=== PATIENT | male | born 1970 | race Caucasian/White ===

== ENCOUNTER 2016-04-20 18:22 | Emergency (ER) | payer OTHER ==
[~2016-04-20] VITALS: Ht 172.7 cm; Wt 78.0 kg
[2016-04-20 18:21] VITALS: TEMP 36.8; Ht 172.7 cm; Wt 78.0 kg
[~2016-04-20 18:22] MED LIST: HYDR-5688 PO; NRV5 PO
[2016-04-20] MEDS ORDERED: ONDANSETRON INJ 2 MG/ML 2 ML VIAL IV. STA (18:48)
[2016-04-20] MEDS ORDERED: MoRPHine SULFATE 10 MG/ML CARP/VIAL IV STA (18:48)
[2016-04-20] MEDS ORDERED: OPTIRAY 320 IV PRN (19:00)
[2016-04-20 19:24] LABS: BASO % 0.4 %; BASO ABS # 0.02 K/uL (0-0.2); COMPLETE YES; EOS % 3.5 %; HEMATOCRIT 38.3 % (42-52); IG% 0.2 %; LYMPH % 32.9 %; MEAN CELL VOLUME 84.4 fL (80-100); MEAN CORPUSCULAR HEMOGLOBIN 31.1 pg (25-34); MEAN CORPUSCULAR HGB CONC 36.8 g/dl (32-36); MEAN PLATELET VOLUME 9.3 fL (7.4-10.4); MONO % 10.1 %; NEUT % 52.9 %; PLATELET COUNT 249 K/uL (130-400); RED BLOOD COUNT 4.54 M/uL (4.7-6.1); WHITE BLOOD COUNT 4.86 K/uL (4.8-10.8)
[2016-04-20 19:30] LABS: ISTAT CREATININE 1.1 mg/dl (0.6-1.3); ISTAT HEMOGLOBIN 12.9 g/dl (14.0-18.0); ISTAT IONIZED CALCIUM 1.15 mmol/l (1.12-1.32)
[2016-04-20 19:36] LABS: INR 1.1 (0.9-1.1); PARTIAL THROMBOPLASTIN RATIO 1.1; PROTHROMBIN TIME (PATIENT) 11.5 SECONDS (9.0-12.0)
[2016-04-20 19:44] LABS: BUN/CREATININE RATIO 17.8 (10-20); CALCIUM 9.2 mg/dl (8.5-10.1); CREATININE 1.1 mg/dl (0.60-1.40)
[2016-04-20 19:47] LABS: ALB/GLOB RATIO 1.3 (0.9-2)
--- NOTE | 2016-04-20 20:27 | DIAGNOSTIC IMAGING REPORT ---
CT OF THE CHEST WITH IV CONTRAST CLINICAL HISTORY: Chest pain status post trauma 50 pound weight fell on patient COMPARISON STUDY: No previous studies for comparison. TECHNIQUE: Following the IV administration of 119 mL of Optiray-320, CT of the thorax was performed from the thoracic inlet to the lung bases. Images are reviewed in the axial, sagittal, and coronal planes. IV contrast was administered without complication. CT DOSE: 1477.04 mGy.cm FINDINGS: Thyroid: Imaged portions of the thyroid gland are normal in appearance. Thoracic aorta: The thoracic aorta is normal in course and caliber, noting standard 3-vessel arch anatomy. No aneurysm or dissection is seen. Pulmonary vasculature: The pulmonary trunk is normal in caliber. There are no central filling defects identified to suggest pulmonary embolus. Note that this examination was not protocoled for the evaluation of pulmonary emboli. HEART: The heart is normal in size and configuration, without pericardial effusion. Lungs and pleural spaces: No pleural effusions are visualized. There is no pneumothorax. There is no focal pulmonary consolidation. There are no findings to indicate pulmonary contusion. Mediastinum: There is no mediastinal lymphadenopathy. Nedra: Clear. Axilla: Clear. Upper abdomen: There is minor left adrenal gland thickening Skeletal structures: There are no lytic or blastic osseous lesions. IMPRESSION: No evidence of acute intrathoracic injury. Electronically signed by: Derrick Pickett M.D. 04/20/2016 8:25 PM Dictated Date/Time: 04/20/2016 8:22 PM
--- NOTE | 2016-04-20 20:29 | DIAGNOSTIC IMAGING REPORT ---
CT OF THE CERVICAL SPINE CLINICAL HISTORY: Neck pain status post trauma COMPARISON STUDY: No previous studies for comparison. CT DOSE: TECHNIQUE: CT scan of the cervical spine was performed from the skull base to the thoracic inlet. Images are reviewed in the axial, sagittal, and coronal planes. IV contrast was not administered for this examination. FINDINGS: The visualized portions of the lung apices reveal no evidence of pneumothorax. The prevertebral soft tissues are normal. No fractures or subluxations are visualized. There are mild degenerative changes. There are several ossicles adjacent to the odontoid. IMPRESSION: No evidence of acute fracture or traumatic subluxation. Electronically signed by: Derrick Pickett M.D. 04/20/2016 8:27 PM Dictated Date/Time: 04/20/2016 8:26 PM
--- NOTE | 2016-04-20 20:31 | DIAGNOSTIC IMAGING REPORT ---
CT THORACIC SPINE WITHOUT CT DOSE: CLINICAL HISTORY: Thoracic spine pain status post trauma. TECHNIQUE: Helical images were acquired in transverse plane. Coronal and sagittal reformatted images were acquired. COMPARISON STUDY: None. FINDINGS: There is no evidence of pneumothorax. There is no evidence of focal pulmonary contusion. There is no evidence of a paraspinal hematoma. No pleural effusions are visualized. There are multilevel degenerative changes present. No fractures are visualized. There are no subluxations. IMPRESSION: No fractures or subluxations identified. Electronically signed by: Derrick Pickett M.D. 04/20/2016 8:29 PM Dictated Date/Time: 04/20/2016 8:27 PM
--- NOTE | 2016-04-20 20:37 | DIAGNOSTIC IMAGING REPORT ---
CT ABD/PELVIS IV AND ORAL CONT CLINICAL HISTORY: Abdominal pain status post trauma. 50 pound weight fell on patient. COMPARISON STUDY: 04/15/2013 TECHNIQUE: Following the IV administration of 119 mL of Optiray-320, CT scan of the abdomen and pelvis was performed from the lung bases to the proximal femurs. Images are reviewed in the axial, sagittal, and coronal planes. IV contrast was administered without complication. CT DOSE: FINDINGS: Lower chest: The heart is normal in size and configuration, without pericardial effusion. The lung bases and pleural spaces are clear. Liver: The contrast-enhanced liver is normal in size, contour, and attenuation. There is no intrahepatic biliary ductal dilatation. The hepatic veins and portal veins are patent. Gallbladder: Unremarkable. Spleen: Mildly enlarged (12.8 cm) Pancreas: There is an equivocal pancreatic divisum. No pancreatic masses are visualized. Adrenal glands: There is mild left adrenal gland thickening. Kidneys: There is symmetric renal cortical enhancement. The kidneys are normal in size without hydronephrosis. Bowel: There are no transition zones indicate bowel obstruction. There is no pathologic bowel wall thickening. No acute inflammatory changes are visualized. Peritoneum: There is no intraperitoneal free air or abdominal ascites. Vasculature: The abdominal aorta is normal in course and caliber. Adenopathy: None. Pelvic viscera: The bladder, and pelvic viscera are unremarkable. Skeletal structures: There is a 1 cm sclerotic lesion within the right iliac bone consistent with a bone island. There is also a right femoral head bone island. No fractures are visualized. IMPRESSION: 1. No evidence of acute intra-abdominal or pelvic injury 2. Mild splenomegaly 3. Equivocal pancreatic divisum Electronically signed by: Derrick Pickett M.D. 04/20/2016 8:35 PM Dictated Date/Time: 04/20/2016 8:30 PM
--- NOTE | 2016-04-20 20:41 | DIAGNOSTIC IMAGING REPORT ---
CT LUMBAR SPINE WITHOUT CT DOSE: CLINICAL HISTORY: Fell, 50lb struck pelvis. Spine pain TECHNIQUE: Helical images were acquired in transverse plane. Reformatted sagittal and coronal images were reviewed. CONTRAST: No contrast was administered COMPARISON STUDY: None. FINDINGS: L1-2 level: There is no evidence of significant disc bulge or focal herniation. There is no evidence of spinal or foraminal stenosis. L2-3 level: There is no evidence of significant disc bulge or focal herniation. There is no evidence of spinal or foraminal stenosis. L3-4 level: There is no evidence of significant disc bulge or focal herniation. There is no evidence of spinal or foraminal stenosis. L4-5 level: There is no evidence of significant disc bulge or focal herniation. There is no evidence of spinal or foraminal stenosis. L5-S1 level: There is moderate disc osteophyte complex. There is no significant spinal stenosis. There is mild bilateral foraminal narrowing. There is a bone island within the right medial iliac bone. There are degenerative changes in the SI joints. No fractures or traumatic subluxations are visualized. IMPRESSION: 1. No acute fractures or traumatic subluxations identified 2. Disc osteophyte complex at the L5-S1 level. Electronically signed by: Derrick Pickett M.D. 04/20/2016 8:40 PM Dictated Date/Time: 04/20/2016 8:37 PM
[2016-04-20] MEDS ORDERED: MoRPHine SULFATE 4 MG/ML 1 ML CARP\\VIAL IV STA (20:47)
--- NOTE | 2016-04-20 21:11 | DIAGNOSTIC IMAGING REPORT ---
LEFT SHOULDER MIN 2 VIEWS ROUTINE CLINICAL HISTORY: Left shoulder pain status post trauma COMPARISON: None. DISCUSSION: No fractures or dislocations are visualized. IMPRESSION: No fractures or dislocations identified. Electronically signed by: Derrick Pickett M.D. 04/20/2016 9:10 PM Dictated Date/Time: 04/20/2016 9:09 PM
--- NOTE | 2016-04-20 21:12 | DIAGNOSTIC IMAGING REPORT ---
RIGHT SHOULDER MIN 2 VIEWS ROUTINE CLINICAL HISTORY: Right shoulder pain status post trauma COMPARISON: None. DISCUSSION: No fractures or dislocations are visualized. There is a small bone island within the humeral head. IMPRESSION: No fractures or dislocations identified. Electronically signed by: Derrick Pickett M.D. 04/20/2016 9:10 PM Dictated Date/Time: 04/20/2016 9:10 PM
[2016-04-20] MEDS ORDERED: OXYCODONE IR HOME PACK PO STA (22:16)
[2016-04-20] MEDS ORDERED: POTASSIUM CHLORIDE 20 MEQ TABCR PO STA (22:17)
--- NOTE | 2016-04-20 22:17 | EMERGENCY ROOM VISIT NOTE ---
History First contact with patient: 18:37 Chief Complaint: FALL Stated Complaint: FALL/ BACK PAIN History of Present Illness The patient is a 46 year old male who presents to the Emergency Room via ambulance with complaints of "fall/back pain". The patient states that last night around 7 PM he was carrying a 50 pound bag of salt in his he was descending the steps he fell backwards and landed on a landing. He said the bag then struck him in the anterior pelvis. He states he has numbness and tingling with pain shooting down both of his legs. He feels he is experiencing leg weakness but is able to ambulate. He points to both shoulders noted there is pain in these regions. He has taken lots of Tylenol today without any relief. He states he has taken 20 Tylenol tablets today of which were at least 250 mg. He states that he can't eat and also has abdominal pain with pain in the low-back rated as an 8-9/10. The patient denies any head pain, neck pain, numbness or tingling in the genital region, bowel or bladder incontinence, pain shooting down his arms, loss of consciousness, numbness or tingling in his arms. Review of Systems A complete 10-point Review of Systems was discussed with the patient, with pertinent positives and negatives listed in the History of Present Illness. All remaining Review of Systems questions can be considered negative unless otherwise specified. Past Medical/Surgical History Medical Problems: (1) Benign hypertension (2) Dental caries (3) Inguinal hernia, right Family History Diabetes mellitus Heart disease Kidney disease Social History Smoking Status: Never Smoker Alcohol Use: occasionally Drug Use: none Marital Status: single, Housing Status: lives alone Occupation Status: disabled Current/Historical Medications Scheduled Lisinopril/Hctz (Zestoretic 20MG/12.5MG), 1 TAB PO DAILY Scheduled PRN Acetaminophen (Tylenol), 1,300 MG PO DIRECTED PRN for Pain Oxycodone Ir (Roxicodone Ir), 1-2 TAB PO Q4H PRN for Pain Allergies Coded Allergies: Cyclobenzaprine (Verified Adverse Reaction, Unknown, ANXIETY AND AGITATION , 03/13/16) Physical Exam Vital Signs Date Time Temp Pulse Resp B/P Pulse Ox O2 Delivery O2 Flow Rate FiO2 04/20/16 22:35 75 18 128/96 99 04/20/16 21:20 69 18 145/103 99 Room Air 04/20/16 20:48 Room Air 04/20/16 19:28 76 18 166/108 98 Room Air 04/20/16 18:21 36.8 82 18 157/114 98 Room Air Physical Exam VITAL SIGNS - Vital signs and nursing notes were reviewed. Patient is afebrile , he is hypertensive at 157/114, he is non-tachycardic and is saturating well on room air 98%. GENERAL -46-year-old male appearing his stated age who is in no acute distress. The patient is nontoxic in appearance but does appear to be in pain. Communicates well with provider and answers questions appropriately. SKIN - Gross examination of the entire body surface demonstrates no lacerations or abrasions. There is no ecchymosis noted. HEAD - Normocephalic, Atraumatic. No Carter's Sign or Raccoon's Eyes. EYES - PERRL with EOMI bilaterally. Without subconjunctival hemorrhage. Palpebral conjunctiva pink and moist with no injection. EARS - No deformities of external structures noted on gross examination bilaterally. No hemotympanum present. No tympanic perforation noted. Handle of malleus, umbo, cone of light, pars tensa/flaccid all easily visualized. NOSE - Midline and without cyanosis. No epistaxis or clear watery discharge noted. Septum midline without deviation. No septal hematoma noted. No overlying ecchymosis noted. MOUTH/OROPHARYNX - Without perioral cyanosis. Tongue midline with equal elevation of palate bilaterally. No blood noted in the oropharynx. No tonsillar hypertrophy, erythema, or exudates noted. No dental fractures noted. NECK - Cervical collar in place. There is tenderness to palpation over the cervical, thoracic and lumbar spinous processes. Minimal cervical paraspinal muscle tenderness noted. LUNGS - Chest wall symmetric without accessory muscle use, intercostals retractions, or central cyanosis. No flail chest or depressed fractures noted. No paradoxical chest wall movements noted. No tenderness to palpation across the anterior and posterior chest sebastian. Normal vesicular breath sounds CTA B/ L. No wheezes, rales, or rhonchi appreciated. CARDIAC - RRR with S1/S2. No murmur, rubs, or gallops appreciated. ABDOMEN - Abdominal contour and without pulsations or visible masses. BS normoactive all four quadrants. No rebound tenderness or guarding noted. Negative Pavan's or Cullen Pierre's Signs. No tenderness, palpable masses, hepatosplenomegaly, or ascites noted. EXTREMITIES - No gross deformities noted of the extremities. There is tenderness to palpation over the bilateral shoulders. Patient is vascularly intact in the extremities. FROM with no tremors, fasciculations, or clonus noted on PROM throughout. +5/5 strength noted in UE/LE bilaterally. NEUROLOGIC - Cranial nerves II through XII grossly intact. Sensory intact to light touch throughout. Lower extremity reflexes intact. Patient able to axial load and ambulate without assistance. PSYCH - A&Ox3 and cooperates fully with examiner. Pt is very pleasant and interacts well with examiner. Medical Decision & Procedures ER Provider Diagnostic Interpretation: CT ABD/PELVIS IV AND ORAL CONT CLINICAL HISTORY: Abdominal pain status post trauma. 50 pound weight fell on patient. COMPARISON STUDY: 04/15/2013 TECHNIQUE: Following the IV administration of 119 mL of Optiray-320, CT scan of the abdomen and pelvis was performed from the lung bases to the proximal femurs. Images are reviewed in the axial, sagittal, and coronal planes. IV contrast was administered without complication. CT DOSE: FINDINGS: Lower chest: The heart is normal in size and configuration, without pericardial effusion. The lung bases and pleural spaces are clear. Liver: The contrast-enhanced liver is normal in size, contour, and attenuation. There is no intrahepatic biliary ductal dilatation. The hepatic veins and portal veins are patent. Gallbladder: Unremarkable. Spleen: Mildly enlarged (12.8 cm) Pancreas: There is an equivocal pancreatic divisum. No pancreatic masses are visualized. Adrenal glands: There is mild left adrenal gland thickening. Kidneys: There is symmetric renal cortical enhancement. The kidneys are normal in size without hydronephrosis. Bowel: There are no transition zones indicate bowel obstruction. There is no pathologic bowel wall thickening. No acute inflammatory changes are visualized. Peritoneum: There is no intraperitoneal free air or abdominal ascites. Vasculature: The abdominal aorta is normal in course and caliber. Adenopathy: None. Pelvic viscera: The bladder, and pelvic viscera are unremarkable. Skeletal structures: There is a 1 cm sclerotic lesion within the right iliac bone consistent with a bone island. There is also a right femoral head bone island. No fractures are visualized. IMPRESSION: 1. No evidence of acute intra-abdominal or pelvic injury 2. Mild splenomegaly 3. Equivocal pancreatic divisum Electronically signed by: Derrick Pickett M.D. 04/20/2016 8:35 PM Dictated Date/Time: 04/20/2016 8:[address] OF THE CERVICAL SPINE CLINICAL HISTORY: Neck pain status post trauma COMPARISON STUDY: No previous studies for comparison. CT DOSE: TECHNIQUE: CT scan of the cervical spine was performed from the skull base to the thoracic inlet. Images are reviewed in the axial, sagittal, and coronal planes. IV contrast was not administered for this examination. FINDINGS: The visualized portions of the lung apices reveal no evidence of pneumothorax. The prevertebral soft tissues are normal. No fractures or subluxations are visualized. There are mild degenerative changes. There are several ossicles adjacent to the odontoid. IMPRESSION: No evidence of acute fracture or traumatic subluxation. Electronically signed by: Derrick Pickett M.D. 04/20/2016 8:27 PM Dictated Date/Time: 04/20/2016 8:[address] OF THE CHEST WITH IV CONTRAST CLINICAL HISTORY: Chest pain status post trauma 50 pound weight fell on patient COMPARISON STUDY: No previous studies for comparison. TECHNIQUE: Following the IV administration of 119 mL of Optiray-320, CT of the thorax was performed from the thoracic inlet to the lung bases. Images are reviewed in the axial, sagittal, and coronal planes. IV contrast was administered without complication. CT DOSE: 1477.04 mGy.cm FINDINGS: Thyroid: Imaged portions of the thyroid gland are normal in appearance. Thoracic aorta: The thoracic aorta is normal in course and caliber, noting standard 3-vessel arch anatomy. No aneurysm or dissection is seen. Pulmonary vasculature: The pulmonary trunk is normal in caliber. There are no central filling defects identified to suggest pulmonary embolus. Note that this examination was not protocoled for the evaluation of pulmonary emboli. HEART: The heart is normal in size and configuration, without pericardial effusion. Lungs and pleural spaces: No pleural effusions are visualized. There is no pneumothorax. There is no focal pulmonary consolidation. There are no findings to indicate pulmonary contusion. Mediastinum: There is no mediastinal lymphadenopathy. Nedra: Clear. Axilla: Clear. Upper abdomen: There is minor left adrenal gland thickening Skeletal structures: There are no lytic or blastic osseous lesions. IMPRESSION: No evidence of acute intrathoracic injury. Electronically signed by: Derrick Pickett M.D. 04/20/2016 8:25 PM Dictated Date/Time: 04/20/2016 8:[address] LUMBAR SPINE WITHOUT CT DOSE: CLINICAL HISTORY: Fell, 50lb struck pelvis. Spine pain TECHNIQUE: Helical images were acquired in transverse plane. Reformatted sagittal and coronal images were reviewed. CONTRAST: No contrast was administered COMPARISON STUDY: None. FINDINGS: L1-2 level: There is no evidence of significant disc bulge or focal herniation. There is no evidence of spinal or foraminal stenosis. L2-3 level: There is no evidence of significant disc bulge or focal herniation. There is no evidence of spinal or foraminal stenosis. L3-4 level: There is no evidence of significant disc bulge or focal herniation. There is no evidence of spinal or foraminal stenosis. L4-5 level: There is no evidence of significant disc bulge or focal herniation. There is no evidence of spinal or foraminal stenosis. L5-S1 level: There is moderate disc osteophyte complex. There is no significant spinal stenosis. There is mild bilateral foraminal narrowing. There is a bone island within the right medial iliac bone. There are degenerative changes in the SI joints. No fractures or traumatic subluxations are visualized. IMPRESSION: 1. No acute fractures or traumatic subluxations identified 2. Disc osteophyte complex at the L5-S1 level. Electronically signed by: Derrick Pickett M.D. 04/20/2016 8:40 PM Dictated Date/Time: 04/20/2016 8:37 PM RIGHT SHOULDER MIN 2 VIEWS ROUTINE CLINICAL HISTORY: Right shoulder pain status post trauma COMPARISON: None. DISCUSSION: No fractures or dislocations are visualized. There is a small bone island within the humeral head. IMPRESSION: No fractures or dislocations identified. Electronically signed by: Derrick Pickett M.D. 04/20/2016 9:10 PM Dictated Date/Time: 04/20/2016 9:10 PM LEFT SHOULDER MIN 2 VIEWS ROUTINE CLINICAL HISTORY: Left shoulder pain status post trauma COMPARISON: None. DISCUSSION: No fractures or dislocations are visualized. IMPRESSION: No fractures or dislocations identified. Electronically signed by: Derrick Pickett M.D. 04/20/2016 9:10 PM Dictated Date/Time: 04/20/2016 9:[address] THORACIC SPINE WITHOUT CT DOSE: CLINICAL HISTORY: Thoracic spine pain status post trauma. TECHNIQUE: Helical images were acquired in transverse plane. Coronal and sagittal reformatted images were acquired. COMPARISON STUDY: None. FINDINGS: There is no evidence of pneumothorax. There is no evidence of focal pulmonary contusion. There is no evidence of a paraspinal hematoma. No pleural effusions are visualized. There are multilevel degenerative changes present. No fractures are visualized. There are no subluxations. IMPRESSION: No fractures or subluxations identified. Electronically signed by: Derrick Pickett M.D. 04/20/2016 8:29 PM Dictated Date/Time: 04/20/2016 8:27 PM Laboratory Results 04/20/16 19:14 Red Blood Count 4.54, Mean Corpuscular Volume 84.4, Mean Corpuscular Hemoglobin 31.1, Mean Corpuscular Hemoglobin Concent 36.8, Mean Platelet Volume 9.3, Neutrophils (%) (Auto) 52.9, Lymphocytes (%) (Auto) 32.9, Monocytes (%) (Auto) 10.1, Eosinophils (%) (Auto) 3.5, Basophils (%) (Auto) 0.4, Neutrophils # (Auto ) 2.57, Lymphocytes # (Auto) 1.60, Monocytes # (Auto) 0.49, Eosinophils # (Auto ) 0.17, Basophils # (Auto) 0.02 04/20/16 19:14 Test 04/20/16 19:12 04/20/16 19:14 Bedside Hemoglobin 12.9 g/dl (14.0-18.0) Bedside Hematocrit 38 % (42-52) Bedside Sodium 142 mEq/L (135-144) Bedside Potassium 2.9 mEq/L (3.3-5.0) Bedside Chloride 102 mEq/L (101-112) Bedside Total CO2 26 mEq/l (24-31) Bedside Blood Urea Nitrogen 20 mg/dl (7-18) Bedside Creatinine 1.1 mg/dl (0.6-1.3) Bedside Glucose (other) 97 mg/dl (70-99) Bedside Ionized Calcium (Rigo) 1.15 mmol/l (1.12-1.32) White Blood Count 4.86 K/uL (4.8-10.8) Red Blood Count 4.54 M/uL (4.7-6.1) Hemoglobin 14.1 g/dL (14.0-18.0) Hematocrit 38.3 % (42-52) Mean Corpuscular Volume 84.4 fL (80-100) Mean Corpuscular Hemoglobin 31.1 pg (25-34) Mean Corpuscular Hemoglobin Concent 36.8 g/dl (32-36) Platelet Count 249 K/uL (130-400) Mean Platelet Volume 9.3 fL (7.4-10.4) Neutrophils (%) (Auto) 52.9 % Lymphocytes (%) (Auto) 32.9 % Monocytes (%) (Auto) 10.1 % Eosinophils (%) (Auto) 3.5 % Basophils (%) (Auto) 0.4 % Neutrophils # (Auto) 2.57 K/uL (1.4-6.5) Lymphocytes # (Auto) 1.60 K/uL (1.2-3.4) Monocytes # (Auto) 0.49 K/uL (0.11-0.59) Eosinophils # (Auto) 0.17 K/uL (0-0.5) Basophils # (Auto) 0.02 K/uL (0-0.2) RDW Standard Deviation 37.9 fL (36.4-46.3) RDW Coefficient of Variation 12.4 % (11.5-14.5) Immature Granulocyte % (Auto) 0.2 % Immature Granulocyte # (Auto) 0.01 K/uL (0.00-0.02) Prothrombin Time 11.5 SECONDS (9.0-12.0) Prothromb Time International Ratio 1.1 (0.9-1.1) Activated Partial Thromboplast Time 29.6 SECONDS (21.0-31.0) Partial Thromboplastin Ratio 1.1 Anion Gap 11.0 mmol/L (3-11) Est Creatinine Clear Calc Drug Dose 82.0 ml/min Estimated GFR () 93.5 Estimated GFR (Non- 80.6 BUN/Creatinine Ratio 17.8 (10-20) Calcium Level 9.2 mg/dl (8.5-10.1) Total Bilirubin 0.5 mg/dl (0.2-1) Aspartate Amino Transf (AST/SGOT) 17 U/L (15-37) Alanine Aminotransferase (ALT/SGPT) 15 U/L (12-78) Alkaline Phosphatase 111 U/L (45-117) Total Protein 7.5 gm/dl (6.4-8.2) Albumin 4.2 gm/dl (3.4-5.0) Globulin 3.3 gm/dl (2.5-4.0) Albumin/Globulin Ratio 1.3 (0.9-2) Acetaminophen Level < 2 ug/ml (10-30) Medications Administered Medications (Trade) Dose Ordered Sig/Zachariah Route Start Time Stop Time Status Last Admin Dose Admin Morphine Sulfate (MoRPHine SULFATE INJ) 10 mg NOW STAT IV 04/20/16 18:48 04/20/16 18:55 DC 04/20/16 19:27 10 MG Ondansetron HCl (Zofran Inj) 4 mg NOW STAT IV. 04/20/16 18:48 04/20/16 18:56 DC 04/20/16 19:27 4 MG Morphine Sulfate (MoRPHine SULFATE INJ) 4 mg NOW STAT IV 04/20/16 20:47 04/20/16 20:48 DC 04/20/16 21:15 4 MG Oxycodone HCl (Roxicodone Immediate Rel 5MG Home Pack) 1 homepack UD STAT PO 04/20/16 22:16 04/20/16 22:17 DC 04/20/16 22:31 1 HOMEPACK Potassium Chloride (Klor-Con Tab) 40 meq NOW STAT PO 04/20/16 22:17 04/20/16 22:18 DC 04/20/16 22:31 40 MEQ Medical Decision Patient was seen and evaluated as above. After obtaining a thorough history and physical examination, IV access was obtained and a CBC, CMP, apply cervical collar, shoulder radiographs bilaterally, CT of the C-spine, chest, thoracic region, lumbar region, abdomen and pelvis with IV and oral contrast secondary to subjective and objective examination findings. And acetaminophen levels also drawn as well as coagulation studies. An i-STAT was also ordered secondary to the patient's subjective acuity so that way stat CT scan be obtained. Patient was given 10 mg of morphine IV secondary to his objective and subjective level of pain. He was also given 4 mg of Zofran IV. The i-STAT revealed a low potassium of 2.9 therefore an EKG was obtained and revealed a sinus rhythm with fusion complexes at a ventricular rate of 75 bpm with no ectopy or ischemic change. These fusion complexes were not present in February 2015 however there appears to be very little change from previous and as the patient was not experiencing any chest pain or shortness of breath I do not feel there is any acute pathology behind this. This was to rule out any hypokalemic changes which I do not see. The results of the radiographs and CT scans are as above. These were discussed in detail with the patient to include the incidental findings. He is to follow-up with his family doctor regarding these findings. He then underwent an ambulatory trial in my presence as well as my attending. My attending also personally evaluated the patient. The patient stated he did not have a ride home and did not have money for a taxi therefore wanted to walk on. I then discussed the case with our case investigator and it was decided to provide him with a voucher but he was instructed that this is not a regular occurrence and that he would have to have a ride home in the future if he was to return. He verbalizes understanding. I did elect to give him a home pack of OxyIR 5 mg tablets as well as a prescription for home for his pain. He was then instructed to call his family doctor for follow-up regarding today's visit. He was informed upon a low potassium finding and was provided with 40 mEq of potassium here. He was educated upon worrisome symptoms in which to return. He had questions answered prior to discharge and was discharged home in good condition. He is to follow-up with his family doctor regarding today's visit and CT scan findings. CBC reveals a slight anemia, no coagulation deficit, no evidence of renal failure or liver failure. There appears to be no problems with the liver although the patient did consume a lot of Tylenol today but the Tylenol level is low. In evaluation treatment this patient the following differential diagnoses were entertained: Trauma, hypokalemia, among others. [place] Drug Monitoring Program Search Results: patient reviewed within database, no issues identified Impression Primary Impression: Fall Additional Impressions: Hypokalemia Contusion of multiple sites Departure Information Dispostion Home / Self-Care Condition GOOD Prescriptions Oxycodone Ir (Roxicodone Ir) 5 Mg Tab 1-2 TAB PO Q4H Y for Pain, #15 TAB For Initial Treatment Prov: Florentino Ceja PA-C 04/20/16 Referrals Vargas Fleming M.D. (PCP) Patient Instructions [facility] Additional Instructions You have been treated in the Emergency Department for Back Pain following a fall. You have received pain medicine in the emergency department which impairs your ability to operate a vehicle. It is illegal for you to drive after receiving these medicines. You have been prescribed Oxy IR to be used for pain control. This is a narcotic medication. You cannot drive or consume alcohol while on this medicine. This medicine should only be used for pain that cannot be controlled with over-the- counter pain medicines. Follow-up please consider using a stool softener with this. For pain control, you can use the following [id number] medicines (if >12 yo): - Regular strength (325mg/tab) Tylenol (acetaminophen) 2 tabs every 4-6 hours as needed. Do not exceed 12 tablets in a 24 hour period. Avoid taking more than 4 grams (4000 mg) of Tylenol per day. This includes any other sources of acetaminophen you may take on a regular basis. - Regular strength (200 mg/tab) Advil (ibuprofen) 1-2 tabs every 4-6 hours as needed. Do not exceed a dose of 3200 mg per day. If this is an acute injury, ice can be applied to the area of pain for the first 3 days to help decrease pain and inflammation. After the first 3 days, a heating pad can be used over the area for continued soothing relief. You should schedule a follow-up appointment in 2-3 days with your Primary Care Provider for further evaluation and treatment of your back pain. Please discuss the NON emergent findings of the CT scan with your family doctor as we discussed. They should be able to access these records. Return to the Emergency Department if your current symptoms worsen despite treatment course outlined above, or if you develop any of the following symptoms : intractable pain despite aforementioned treatment course, loss of control of your bowel or bladder, numbness or tingling in your groin, or development of a fever. Please return to the emergency Department recently new/concerning symptoms. Problem Qualifiers
[2016-04-20] MEDS ORDERED: OXYC1TAB3 PO (22:19)
[2016-04-20] MEDS ORDERED: POTASSIUM CHLORIDE 10 MEQ TABCR ONE (22:22)
[2016-04-20 22:35] VITALS: BP 128/96; PULSE 75; O2SAT 99
--- NOTE | 2016-04-21 00:53 | EMERGENCY ROOM VISIT NOTE ---
ED Visit Note First contact with patient: 18:37 I have personally evaluated this patient examined him and reviewed the pertinent labs and data. I have discussed the case with Florentino Ceja, the physician metallurgical laboratory assistant and agree with the plan. Please refer to the PA note She comes in after falling when carrying a heavy having. He has diffuse pain we did hand CAT scans and they're unremarkable. he complains that he has pain going down his legs and some sensation of tingling. He has normal motor on my exam and has brisk 2+ Achilles and patellar reflexes. He is able ambulate with some pain in his back. There is no evidence of any lumbar fracture. Clinically , he has nothing to suggest cauda equina syndrome. At this point, he will need follow-up with his regular doctor and pain management. He is encouraged to return if: increasing pain, numbness weakness, change in bowel or bladder function, any new problems or concerns. He was happy with plan and discharged to home.
[2016-06-24] MEDS ORDERED: ACET-1311 PO (19:25)
[2016-07-18] MEDS ORDERED: LISI-787 PO (19:24)
== END 2016-04-20 22:37 | disposition home or self-care (01) ==
LOC: EDBD 18:22 → C.EDD 18:23
DX: S20.229A Contusion of unspecified back wall of thorax, initial encounter (principal); W10.8XXA Fall (on) (from) other stairs and steps, initial encounter; E87.6 Hypokalemia; I10 Essential (primary) hypertension; Z79.899 Other long term (current) drug therapy; Z88.8 Allergy status to other drugs, medicaments and biological substances; Z88.3 Allergy status to other anti-infective agents; Z82.49 Family history of ischemic heart disease and other diseases of the circulatory system; Z84.1 Family history of disorders of kidney and ureter

== ENCOUNTER 2016-06-12 21:36 | Emergency (ER) | payer OTHER ==
[~2016-06-12] VITALS: Ht 174 cm; Wt 79.5 kg
[~2016-06-12 21:36] MED LIST changes: -HYDR-5688 PO; -NRV5 PO; +OXYC1TAB3 PO
[2016-06-12 21:38] VITALS: TEMP 36.7; Ht 174 cm; Wt 79.5 kg
[2016-06-12] MEDS ORDERED: OXYCODONE HCL IR 5 MG TAB (IMMEDIATE RELEASE) PO STA (22:01)
--- NOTE | 2016-06-12 22:09 | EMERGENCY ROOM VISIT NOTE ---
ED Visit Note First contact with patient: 21:40 CHIEF COMPLAINT: Toothache HISTORY OF PRESENT ILLNESS: This 46-year-old male presents the ER with chief complaint of tooth pain which has been ongoing for months. He is having pain in his right lower jaw which she rates at a 7 out of 10. The patient denies any facial pain or swelling. The patient denies any fever or chills. The patient states that he was supposed to have his teeth removed on May 11 but his blood pressure was too high. He is now seeing Dr. Elfor his hypertension. He is taking lisinopril and hydrochlorothiazide for his blood pressure. He states that once his blood pressure is under control oral surgeon has agreed to remove his teeth. REVIEW OF SYSTEMS: 6 system review was performed and was negative unless stated otherwise in history of present illness. PMH: The patient is healthy; hypertension, inguinal hernia repair SOCIAL HISTORY: Patient lives alone. The patient admits to chewing tobacco but denies any alcohol use. PHYSICAL EXAM: Vital Signs: Blood pressure 176/115, pulse 77, respiratory rate 18, temperature 36.7 Reviewed Nurse's notes. GENERAL: 46-year-old white male appears older than stated age. Poor hygiene is noted. MENTAL Status: Alert and oriented 3. MOUTH: All teeth that are remaining are with diffuse decay. Gingiva with erythema and edema throughout. No palpable abscess. The patient has chewed tobacco in his mouth at this time. FACE: There is no facial swelling , NECK: No cervical or submandibular lymphadenopathy. EMERGENCY COURSE: The patient was evaluated. The patient was given OxyIR 5 mg by mouth for pain. He was given an OxyIR home pack to take as directed. The patient was discharged home in stable condition. DIAGNOSIS: Dental decay and dentalgia DISCHARGE INSTRUCTIONS & TREATMENT: Ibuprofen 600 mg every 6 hours with food for pain. Take OxyIR as directed for more severe pain. Do not drive while taking the OxyIR. Take amoxicillin as prescribed. Follow-up with your oral surgeon as soon as possible for removal of all your teeth. Stop chewing tobacco. Problem List Medical Problems: (1) Benign hypertension Status: Chronic (2) Dental caries Status: Chronic (3) Inguinal hernia, right Status: Chronic Current/Historical Medications Scheduled Lisinopril/Hctz (Zestoretic 20MG/12.5MG), 1 TAB PO DAILY Scheduled PRN Acetaminophen (Tylenol), 1,300 MG PO DIRECTED PRN for Pain Allergies Coded Allergies: Cyclobenzaprine (Verified Adverse Reaction, Unknown, ANXIETY AND AGITATION , 06/12/16) Vital Signs Date Time Temp Pulse Resp B/P Pulse Ox O2 Delivery O2 Flow Rate FiO2 06/12/16 21:38 36.7 77 18 176/115 100 Room Air Departure Information Referrals Vargas Fleming M.D. (PCP) Patient Instructions [facility]
[2016-06-12] MEDS ORDERED: OXYC1TAB3 PO (22:10)
[2016-06-12] MEDS ORDERED: AMOX500C3 PO (22:10)
[2016-06-12] MEDS ORDERED: OXYCODONE IR HOME PACK PO ONE (22:15)
[2016-06-12 22:16] VITALS: BP 180/90; PULSE 75; O2SAT 100
[2016-06-24] MEDS ORDERED: ACET-1311 PO (19:25)
[2016-07-18] MEDS ORDERED: LISI-787 PO (19:24)
== END 2016-06-12 22:18 | disposition home or self-care (01) ==
LOC: C.EDB 21:37 → C.EDD 22:18
DX: K02.9 Dental caries, unspecified (principal); I10 Essential (primary) hypertension; Z79.899 Other long term (current) drug therapy

== ENCOUNTER 2016-06-24 19:55 | Emergency (ER) | payer OTHER ==
[~2016-06-24] VITALS: Ht 172.7 cm; Wt 76.6 kg
[~2016-06-24 19:55] MED LIST changes: +ACET-1311 PO
[2016-06-24 20:00] VITALS: PULSE 85; TEMP 37.1; Ht 172.7 cm; Wt 76.6 kg
[2016-06-24] MEDS ORDERED: OXYC1TAB3 PO (20:37)
--- NOTE | 2016-06-24 20:37 | EMERGENCY ROOM VISIT NOTE ---
ED Visit Note First contact with patient: 20:06 CHIEF COMPLAINT: Exacerbation of chronic dental pain HISTORY OF PRESENT ILLNESS: This 46-year-old male returns to the emergency department complaining of dental pain. He states that he has had problems for the last 3 months. He notes primarily right-sided pain. It is presently a 7/ 10. He has exhausted wcul-rtm-dowpjtz measures. He denies drainage or discharge. The patient denies any facial pain or swelling. The patient denies any fever or chills. The patient states that he was supposed to have his teeth removed in early May, but his pressure was too elevated for sedation. Dr. Fleming is managing his hypertension. He has appointment with him in 3 days. He states that his blood pressure has always been poorly controlled but it is now an issue because of the need for the oral surgery. REVIEW OF SYSTEMS: 6 system review was performed and was negative unless stated otherwise in history of present illness. PMH: Electronic medical records are reviewed and summarized as above/below. See Problem List. SOCIAL HISTORY: Patient lives alone. The patient admits to chewing tobacco but denies any alcohol use. PHYSICAL EXAM: Vital Signs: Blood pressure 172/124, pulse 85, respiratory rate 18, temperature 37.1 Reviewed Nurse's notes. GENERAL: 46-year-old white male appears older than stated age. MOUTH: Overall, the patient has extremely poor dentition. Teeth are grossly decayed, fractured and eroded to the gumline.Gingiva with erythema and edema throughout. No palpable abscess. FACE: There is no facial swelling, NECK: No cervical or submandibular lymphadenopathy. EMERGENCY COURSE: The patient was seen and evaluated as above. He was given an OxyIR home pack to take as directed. The patient was discharged home in stable condition. He was just treated with a course of antibiotics recently. It was not felt that additional antibiotics were needed at this time as the patient is experiencing pain and does not appear to have any evidence for focal abscess. He reports that he has antibiotics at home from prior prescriptions that he has not completed. He does not have any evidence for facial cellulitis or Rito's angina. Patient was reviewed in the [facility] Prescription Drug Monitoring Program, he has a 6 narcotic prescriptions since February from both Emergency Department and oral surgery providers. Problem List Medical Problems: (1) Benign hypertension Status: Chronic (2) Dental caries Status: Chronic (3) Inguinal hernia, right Status: Chronic Current/Historical Medications Scheduled Lisinopril/Hctz (Zestoretic 20MG/12.5MG), 2 TAB PO DAILY Scheduled PRN Acetaminophen (Tylenol), 1,300 MG PO PRN PRN for Pain Oxycodone Immediate Rel Tab (Roxicodone Ir), 1-2 TAB PO Q4H PRN for Pain Allergies Coded Allergies: Cyclobenzaprine (Verified Adverse Reaction, Unknown, ANXIETY AND AGITATION , 06/12/16) Vital Signs Date Time Temp Pulse Resp B/P Pulse Ox O2 Delivery O2 Flow Rate FiO2 06/24/16 20:56 20 168/88 99 06/24/16 20:00 37.1 85 20 172/124 98 Room Air Medications Administered Medications (Trade) Dose Ordered Sig/Zachariah Route Start Time Stop Time Status Last Admin Dose Admin Oxycodone HCl (Roxicodone Immediate Rel 5MG Home Pack) 1 homepack UD ONCE PO 06/24/16 20:45 06/24/16 20:46 DC 06/24/16 20:52 1 HOMEPACK Departure Information Impression Primary Impression: Chronic dental pain Prescriptions Oxycodone Immediate Rel Tab (ROXICODONE IR) 5 Mg Tab 1-2 TAB PO Q4H Y for Pain, #30 TAB For Initial Treatment Prov: Keyana Ramírez PA 06/24/16 Referrals Vargas Fleming M.D. (PCP) Patient Instructions [facility] Additional Instructions Oxycodone (OxyIR) 5mg: Take 1-2 pills every four hours for breakthrough pain. Avoid alcohol, operating machinery or dangerous equipment, working on ladders or roofs, DRIVING, or situations where being under the influence may be dangerous. It is recommended to use an nnxs-nbs-otagyyp stool softener such as Colace, 100mg twice daily while taking this medication to avoid constipation. Ibuprofen(Motrin, Advil) may be used for fever or pain. Use 600mg every six hours as needed. Take with food. Avoid using more than 2400mg in a 24 hour period. Do not use 2400mg per day for more than three consecutive days without physician direction. Prolonged inappropriate use can lead to stomach upset or ulcers. (AND/OR) Acetaminophen(Tylenol) may be used for fever or pain. Use 1000mg every six hours as needed. Avoid using more than 4000mg in a 24 hour period. Saltwater gargles after meals and before bedtime. Soft foods. Orajel/Anbesol/clove oil as needed for discomfort. Followup with your dentist for definitive management. You may also follow up with your primary care physician for pain/care management until you can be seen by your dentist.
[2016-06-24] MEDS ORDERED: OXYCODONE IR HOME PACK PO ONE (20:45)
[2016-06-24 20:56] VITALS: BP 168/88; O2SAT 99
[2016-07-18] MEDS ORDERED: LISI-787 PO (19:24)
== END 2016-06-24 20:58 | disposition home or self-care (01) ==
LOC: C.EDB 19:56 → C.EDD 20:58
DX: K08.89 Other specified disorders of teeth and supporting structures (principal); G89.29 Other chronic pain; I10 Essential (primary) hypertension; F17.220 Nicotine dependence, chewing tobacco, uncomplicated

== ENCOUNTER 2016-06-28 00:25 | Emergency (ER) | payer OTHER ==
[~2016-06-28] VITALS: Ht 175.3 cm; Wt 80.8 kg
[2016-06-28 00:36] VITALS: TEMP 36.9; Ht 175.3 cm; Wt 80.8 kg
[2016-06-28] MEDS ORDERED: KETOROLAC TROMETHAMINE 60 MG/2 ML VIAL IM STA (01:06)
[2016-06-28] MEDS ORDERED: OXYC1TAB3 PO (01:08)
--- NOTE | 2016-06-28 01:08 | EMERGENCY ROOM VISIT NOTE ---
History Report prepared by Fidelia: Juan Blue Under the Supervision of: Dr. Quincy Burt M.D. First contact with patient: 01:01 Chief Complaint: BACK INJURY Stated Complaint: HURT BACK History of Present Illness The patient is a 46 year old male who presents to the Emergency Room with complaints of a lower back injury that occurred 12 hours ago. The patient rates his constant "nagging" pain moderate in severity. He was lifting an entertainment center today and accidently twisted his back. He denies any trauma. His pain is radiating down his right leg. He denies any problems moving his bowels or urine. He also denies any abdominal pain and numbness. He has a history of arthritis in his back. Source of History: patient Onset: 12 hours ago Position: back (lower) Symptom Intensity: moderate Quality: other (nagging) Timing: constant Associated Symptoms: No melena, No numbness, No urinary symptoms Note: He has right leg pain. Review of Systems See HPI for pertinent positives & negatives. A total of 10 systems reviewed and were otherwise negative. Past Medical & Surgical Medical Problems: (1) Benign hypertension (2) Dental caries (3) Inguinal hernia, right Old medical records were reviewed. Nurse's notes were reviewed and I agree with. Back problems. Denies diabetes Family History Diabetes mellitus Heart disease Kidney disease Social History Smoking Status: Never Smoker Alcohol Use: occasionally Drug Use: none Marital Status: single, Housing Status: lives alone Occupation Status: unemployed, disabled Current/Historical Medications Scheduled Lisinopril/Hctz (Zestoretic 20MG/12.5MG), 2 TAB PO DAILY Scheduled PRN Oxycodone Immediate Rel Tab (Roxicodone Ir), 1-2 TAB PO Q4H PRN for Pain Oxycodone Immediate Rel Tab (Roxicodone Ir), 1-2 TAB PO Q4H PRN for Severe Pain Allergies Coded Allergies: Cyclobenzaprine (Verified Adverse Reaction, Unknown, ANXIETY AND AGITATION , 06/28/16) Physical Exam Vital Signs Date Time Temp Pulse Resp B/P Pulse Ox O2 Delivery O2 Flow Rate FiO2 06/28/16 01:29 90 16 170/110 99 Room Air 06/28/16 00:36 36.9 99 20 195/110 92 Room Air Physical Exam General: Non ill appearing middle aged male. Well developed well nourished in no acute distress, breathing comfortably on room air. Normal speech HEENT: Normal cephalic atraumatic. Pupils are equal round and reactive to light. Extraocular movements are intact. Oropharynx is pink with moist mucous membranes. No swelling of the mouth lips or tongue. Neck: Supple with a midline trachea. No meningeal signs or stiffness, no JVD or bruits. No Stridor. Chest: Clear to auscultation bilaterally. No wheezes or rhonchi. No increased work of breathing. Heart: regular rate and rhythm. Abdomen: Soft nontender, nondistended without rebound guarding or rigidity. Extremities: No cyanosis clubbing or edema. No calf tenderness or assymetry Spine/Back. Spine and back tenderness to the lower lumbar. Skin: Good turgor without rashes. Neurologic exam: Cranial nerves two through 12 are intact. Motor and sensation are intact and symmetrical throughout. Normal reflexes in legs. Medical Decision & Procedures Medications Administered Medications (Trade) Dose Ordered Sig/Zachariah Route Start Time Stop Time Status Last Admin Dose Admin Ketorolac Tromethamine (Toradol Inj) 60 mg NOW STAT IM 06/28/16 01:06 06/28/16 01:07 DC 06/28/16 01:12 60 MG Oxycodone HCl (Roxicodone Immediate Rel 5MG Home Pack) 1 homepack UD ONCE PO 06/28/16 01:15 06/28/16 01:16 DC 06/28/16 01:12 1 HOMEPACK ED Course 0101: Past medical records reviewed. The patient was evaluated in room C6, and a complete history and physical examination were performed. 0106: Toradol Inj 60 mg IM 0115: Oxycodone HCl 1 homepack PO 0130: Upon reevaluation, the patient is resting. I discussed the results and treatment plan with him. He verbalized agreement of the treatment plan. The patient was discharged home. Medical Decision Differentials include musculoskeletal pain, cauda equina, disc disease, and infection. This patient comes in as described above. He was placed room C6. He has low back pain after twisting it the other day. He has normal neurologic exam. He has nothing to suggest cauda equina syndrome. there is no trauma and I do not think x-rays would be helpful this point and he has nothing to suggest kidney stone or infection. He was given Toradol 60 mg IM and a home pack of OxyIR. He is not driving. He was given a small prescription of OxyIR as well as recommendations to take ibuprofen. He was warned that OxyIR could make him drowsy do not take for drinking, working. He should return to ER if: Increasing pain, worsening of symptoms, fever or chills, any new problems or concerns. He is happy with the plan and discharged home. Follow up with doctor this week for recheck. Impression Primary Impression: Low back pain Scribe Attestation The scribe's documentation has been prepared under my direction and personally reviewed by me in its entirety. I confirm that the note above accurately reflects all work, treatment, procedures, and medical decision making performed by me. Departure Information Dispostion Home / Self-Care Prescriptions Oxycodone Immediate Rel Tab (ROXICODONE IR) 5 Mg Tab 1-2 TAB PO Q4H Y for Severe Pain, #10 TAB Prov: Quincy Burt M.D. 06/28/16 Referrals Vargas Fleming M.D. (PCP) Forms HOME CARE DOCUMENTATION FORM, IMPORTANT VISIT INFORMATION Patient Instructions [facility] Additional Instructions Rest. Drink plenty of fluids. Use ibuprofen 600 mg every 6 hours, take with food For more severe pain, use OxyIR 5 mg, one or 2 pills every 4-6 hours as needed OxyIR may make you drowsy do not take before drinking, driving, working Do not take OxyIR with alcohol or any other pain medications or narcotics. Return if: Increasing pain, numbness or weakness, change in bowel or bladder function, any new problems concerns Follow-up with your doctor in 1-2 days for recheck.
[2016-06-28] MEDS ORDERED: OXYCODONE IR HOME PACK PO ONE (01:15)
[2016-06-28 01:29] VITALS: BP 170/110; PULSE 90; O2SAT 99
[2016-07-18] MEDS ORDERED: LISI-787 PO (19:24)
== END 2016-06-28 01:30 | disposition home or self-care (01) ==
LOC: C.EDB 00:26 → C.EDC 01:30
DX: M54.5 Low back pain (principal); X50.0XXA Overexertion from strenuous movement or load, initial encounter; M47.9 Spondylosis, unspecified; I10 Essential (primary) hypertension; K02.9 Dental caries, unspecified; K40.90 Unilateral inguinal hernia, without obstruction or gangrene, not specified as recurrent; Z83.3 Family history of diabetes mellitus

== ENCOUNTER 2016-06-29 21:11 | Emergency (ER) | payer OTHER ==
[~2016-06-29] VITALS: Ht 175.3 cm; Wt 77.4 kg
[~2016-06-29 21:11] MED LIST changes: -ACET-1311 PO
[2016-06-29 21:31] VITALS: TEMP 36.9; Ht 175.3 cm; Wt 77.4 kg
[2016-06-29] MEDS ORDERED: ASPIRIN 81 MG CHEW PO STA (22:03)
[2016-06-29] MEDS ORDERED: METOPROLOL TARTRATE 1 MG/ML VIAL IV STA (22:03)
[2016-06-29] MEDS ORDERED: SODIUM CHLORIDE 0.9% 1000ML 1,000 ML IV STA (22:03)
[2016-06-29] MEDS: NITROGLYCERIN 0.4 MG SL PER TAB CHARGE SL PRN ×3 (22:28→22:49)
--- NOTE | 2016-06-29 22:46 | DIAGNOSTIC IMAGING REPORT ---
SINGLE VIEW CHEST CLINICAL HISTORY: Atypical chest pain. FINDINGS: An AP, portable, upright chest radiograph is compared to study dated 03/02/2015 and correlated with chest CT dated 04/20/2016. The cardiomediastinal silhouette is unremarkable. The lungs and pleural spaces are clear. No pneumothorax is seen. The bony thorax is grossly intact. IMPRESSION: No active disease in the chest. Electronically signed by: Truman Duran M.D. 06/29/2016 10:45 PM Dictated Date/Time: 06/29/2016 10:45 PM
[2016-06-29 22:53] LABS: BASO % 0.5 %; BASO ABS # 0.04 K/uL (0-0.2); COMPLETE YES; EOS % 1.9 %; HEMATOCRIT 41.8 % (42-52); IG% 0.3 %; LYMPH % 27.9 %; LYMPH ABS # 2.06 K/uL (1.2-3.4); MEAN CELL VOLUME 86.4 fL (80-100); MEAN CORPUSCULAR HEMOGLOBIN 31.2 pg (25-34); MEAN CORPUSCULAR HGB CONC 36.1 g/dl (32-36); MEAN PLATELET VOLUME 9.1 fL (7.4-10.4); MONO % 8.4 %; PLATELET COUNT 296 K/uL (130-400); RED BLOOD COUNT 4.84 M/uL (4.7-6.1); WHITE BLOOD COUNT 7.38 K/uL (4.8-10.8)
[2016-06-29 23:14] LABS: ALT/SGPT 19 U/L (12-78); AST/SGOT 14 U/L (15-37); BLOOD UREA NITROGEN 13 mg/dl (7-18); BUN/CREATININE RATIO 12.2 (10-20); CALCIUM 9.6 mg/dl (8.5-10.1); CARBON DIOXIDE 29 mmol/L (21-32); CHLORIDE 107 mmol/L (98-107); GLUCOSE 85 mg/dl (70-99); POTASSIUM 3.9 mmol/L (3.5-5.1); SODIUM 144 mmol/L (136-145)
[2016-06-29 23:17] LABS: ALKALINE PHOSPHATASE 109 U/L (45-117)
[2016-06-29 23:49] VITALS: BP 156/105; PULSE 78; O2SAT 97
--- NOTE | 2016-06-30 01:08 | EMERGENCY ROOM VISIT NOTE ---
ED Visit Note First contact with patient: 21:42 Chief Complaint: Dental pain. History of Present Illness: Mr. Blount is a 46 year-old white male who ambulates into the ED complaining of dental pain. Historically patient reports hypertension. He denies any personal history of coronary artery disease but does report that he has a history of uncontrolled hypertension and tobacco use. Additionally he reports that his mother had coronary artery disease and had a triple bypass at age 45. Patient initially reports he has been having ongoing severe dental pain for weeks. He does report he was evaluated by a dentist and Eyad Jackson who told him he needed all of his teeth removed because of his severe disease. Patient goes on to report that they refused to pull his teeth under sedation because of his ongoing uncontrolled blood pressure. He reports he is followed up with his primary care provider multiple times and multiple medications and different dosages of these different medications were trialed but they have been unsuccessful in controlling his blood pressure. Currently he describes his pain as a deep achy sensation and throbbing. He rates his discomfort 8/10. The pain is nonradiating. His pain worsens with palpation showing. Has not identified any alleviating factors related to the pain. He reports he has not taken any medication for pain but this is the third time he has been here this month and has received multiple doses of narcotics. He denies any associated facial swelling, fevers, chills. While I was evaluating the patient for his dental pain he then reported his blood pressure has been so out of control that today, approximately 11 hours ago he developed chest pain. He reports since that time the pain has been constant but has waxed and waned in intensity. He describes the pain as an achy sensation and it is located over the right sternal border and into the right chest and shoulder area. Currently he rates this discomfort 4/10 but does report it has been as high as 7/10. The pain occurred at rest while he was watching TV. He has not identified any aggravating or alleviating factors related to this discomfort. He has not taken a medications for this discomfort prior to arrival at the hospital. Associated with this discomfort he reports he has been short of breath. Patient denies fevers, chills, sweats, skin eruptions, skin color changes, facial swelling, upper respiratory tract symptoms, wheezing, cough, orthopnea, dependent edema, previous clots, claudication, cramping, recent surgery/ inactivity/extended travel, abdominal pain, nausea, vomiting, diarrhea, constipation, rectal bleeding, black/tarry stools, urinary symptoms, back/flank pain. Review of Systems: As noted above in history of present illness. All body systems were reviewed and found to be negative as noted above. Past Medical History: As previously noted, multiple dental caries, status post inguinal hernia repair. Current Medications: OxyIR, lisinopril/hydrochlorothiazide, Tylenol. Allergies to Medications: Patient denies. Social History: Patient is not employed; he feels safe in his home environment; he admits to tobacco use and denies alcohol use. Physical Examination: Vital Signs: Date Time Temp Pulse Resp B/P Pulse Ox O2 Delivery O2 Flow Rate FiO2 06/29/16 23:49 78 12 156/105 97 06/29/16 23:10 74 16 150/111 96 Room Air 06/29/16 23:02 77 16 145/108 98 Room Air 06/29/16 22:57 95 16 133/101 97 Room Air 06/29/16 22:50 96 18 130/120 96 Room Air 06/29/16 22:50 94 130/120 06/29/16 22:19 87 06/29/16 21:31 36.9 118 16 175/145 97 Room Air GENERAL: 46-year-old female in mild to moderate distress due to pain, nontoxic- appearing, afebrile and hemodynamically stable. NEUROLOGICAL: Awake, alert and oriented to person, place and time. Answering questions appropriately and following commands. Normal gait. Good hand eye coordination. SKIN: Warm, dry and pink. No soft tissue eruptions or trauma noted. HEENT: Atraumatic and normocephalic. PERRLA. Sclera white and conjunctiva pink. Oral cavity moist and pink. Multiple maxillary and mandibular dental caries with severe dental decaying. Pharynx is nonerythematous or edematous. Airway pain. Speech normal. No lymphadenopathy. Trachea midline. No jugular venous distention. No carotid bruits. BACK: No tenderness over the bony spine. No CVA tenderness. THORAX: Lungs sounds are clear to auscultation and equal bilaterally with symmetrical chest wall. No wheezing, rales or rhonchi. No crepitus, tenderness , subcutaneous air or deformities noted. HEART: Regular rate and rhythm. No gallops, rubs or murmurs are appreciated. No lifts, heaves or thrills. PMI is not displaced. ABDOMEN: Flat, soft and nontender. Positive bowel sounds in all quadrants. No guarding, rigidity or organomegaly. EXTREMITIES: Moves all extremities well on command and with purpose. All distal neurovascular statuses are intact and equal bilaterally. No dependent edema or calf tenderness/cords. ED Course: Patient is assessed as noted above. Laboratory Testing: Test 06/29/16 22:35 06/29/16 22:39 Range/Units White Blood Count 7.38 4.8-10.8 K/uL Red Blood Count 4.84 4.7-6.1 M/uL Hemoglobin 15.1 14.0-18.0 g/dL Hematocrit 41.8 42-52 % Mean Corpuscular Volume 86.4 80-100 fL Mean Corpuscular Hemoglobin 31.2 25-34 pg Mean Corpuscular Hemoglobin Concent 36.1 32-36 g/dl Platelet Count 296 130-400 K/uL Mean Platelet Volume 9.1 7.4-10.4 fL Neutrophils (%) (Auto) 61.0 % Lymphocytes (%) (Auto) 27.9 % Monocytes (%) (Auto) 8.4 % Eosinophils (%) (Auto) 1.9 % Basophils (%) (Auto) 0.5 % Neutrophils # (Auto) 4.50 1.4-6.5 K/uL Lymphocytes # (Auto) 2.06 1.2-3.4 K/uL Monocytes # (Auto) 0.62 0.11-0.59 K/uL Eosinophils # (Auto) 0.14 0-0.5 K/uL Basophils # (Auto) 0.04 0-0.2 K/uL RDW Standard Deviation 40.1 36.4-46.3 fL RDW Coefficient of Variation 12.6 11.5-14.5 % Immature Granulocyte % (Auto) 0.3 % Immature Granulocyte # (Auto) 0.02 0.00-0.02 K/uL Sodium Level 144 136-145 mmol/L Potassium Level 3.9 3.5-5.1 mmol/L Chloride Level 107 98-107 mmol/L Carbon Dioxide Level 29 21-32 mmol/L Anion Gap 8.0 3-11 mmol/L Blood Urea Nitrogen 13 7-18 mg/dl Creatinine 1.10 0.60-1.40 mg/dl Est Creatinine Clear Calc Drug Dose 84.8 ml/min Estimated GFR () 93.5 Estimated GFR (Non- 80.6 BUN/Creatinine Ratio 12.2 10-20 Random Glucose 85 70-99 mg/dl Calcium Level 9.6 8.5-10.1 mg/dl Total Bilirubin 0.2 0.2-1 mg/dl Direct Bilirubin < 0.1 0-0.2 mg/dl Aspartate Amino Transf (AST/SGOT) 14 15-37 U/L Alanine Aminotransferase (ALT/SGPT) 19 12-78 U/L Alkaline Phosphatase 109 45-117 U/L Total Protein 8.3 6.4-8.2 gm/dl Albumin 4.6 3.4-5.0 gm/dl Lipase 234 73-393 U/L Bedside Troponin I 0.000 0-0.045 ng/ml EKG: Was read by myself and reviewed with Dr. James; shows normal sinus rhythm with sinus arrhythmia. Ventricular rate 96 bpm. Normal axis, intervals and complexes. No acute ST changes indicating ischemia, injury or infarction. This was compared to a previous on April 2016 and shows no acute changes. Chest x-rays: Were read by myself and the radiologist showing no acute infiltrates, effusions or pneumothorax. Normal heart silhouette and bony anatomy. This was compared to previous from April 2016 in no acute changes were noted. Patient was hydrated with normal saline and he received a 324 mg aspirin shoe, a nitroglycerin trial of 0.4 mg 3 with relief of chest discomfort and 15 mg of Lopressor IV. Patient was reassessed multiple times during his stay in the emergency department. Patient's case was reviewed with Dr. James; we agreed on diagnostic approach , treatment, disposition and plan. Patient was educated about tonight's findings and instructed on his treatment plan; he verbalizes understanding and agreement with this plan. Clinical Impression: Chest pain in an adult. Dental pain. Hypertension. Decision-Making: For his chest pain initially I was concerned with acute coronary syndrome, pneumothorax, pneumonia, pulmonary embolism, musculoskeletal disorder and other causes. For his dental pain I was concerned with worsening dental disease, abscess and other causes. Disposition: Patient discharged home in stable condition; prior to departure he was reassessed and subjectively reported that he was pain and symptom-free. Plan: Chest pain and hypertension Patient was encouraged to continue his current medications as prescribed by his PCP. Patient was encouraged to call his PCP tomorrow and request follow-up care and treatment and possible referral to cardiology. Patient was encouraged return the ED for return of chest pain or any new/ concerning symptoms. Dental pain Patient was told he would not receive any more narcotics for his dental pain and he can alternate ibuprofen and acetaminophen every 3 hours. Patient was encouraged to cover his teeth with dental wax. Patient was encouraged to keep his mouth clean with brushing, gargling with saltwater and flossing 4-5 times a day. Patient was encouraged to tobacco use. Patient was encouraged to follow-up with his dentist for definitive care and treatment. Patient was encouraged return the ED for facial swelling, fevers or any new/ concerning symptoms.
[2016-07-18] MEDS ORDERED: LISI-787 PO (19:24)
== END 2016-06-29 23:50 | disposition home or self-care (01) ==
LOC: C.EDB 21:13
DX: R07.9 Chest pain, unspecified (principal); K08.89 Other specified disorders of teeth and supporting structures; I10 Essential (primary) hypertension; F17.200 Nicotine dependence, unspecified, uncomplicated; Z79.899 Other long term (current) drug therapy; Z98.890 Other specified postprocedural states

== ENCOUNTER 2016-07-18 19:58 | Emergency (ER) | payer OTHER ==
[~2016-07-18] VITALS: Ht 175.3 cm; Wt 76.0 kg
[~2016-07-18 19:58] MED LIST changes: +LISI-787 PO
[2016-07-18 20:04] VITALS: TEMP 36.7; Ht 175.3 cm; Wt 76.0 kg
[2016-07-18] MEDS ORDERED: OXYCODONE IR HOME PACK PO ONE (20:45)
--- NOTE | 2016-07-18 21:05 | EMERGENCY ROOM VISIT NOTE ---
ED Visit Note First contact with patient: 20:19 CHIEF COMPLAINT: Toothache HISTORY OF PRESENT ILLNESS: This 46-year-old male patient presented to the emergency department ambulatory complaining of pain in all of his teeth. The patient states that he has had pain in all of his teeth for the past few months. He has an appointment scheduled in 2 days to have all of his teeth pulled. He states that he has been taking ibuprofen and Tylenol without relief of his pain, which he rates an 8/10. He reports that his primary care provider and dentist will not give him any prescriptions for pain medication. He denies facial swelling, discharge, fevers or neck pain. REVIEW OF SYSTEMS: A 6 system review of systems was completed with positives and pertinent negatives listed in the HPI. ALLERGIES: Cyclobenzaprine MEDICATIONS: Lisinopril/hydrochlorothiazide PMH: Hypertension SOCIAL HISTORY: The patient lives locally. Nonsmoker, denies alcohol use. PHYSICAL EXAM: Vitals are noted on the nurse's note and reviewed by myself. Vital signs stable. Temperature 36.7C orally. GENERAL: This is a 46-year-old male, in no acute distress, nondiaphoretic, well-developed well-nourished. Mouth: All of the patient's remaining teeth are very carious and decaying. There is no significant swelling of the gums or drainage from the gums. There is no facial swelling. No lymphadenopathy. The airway is patent. The patient appears uncomfortable and in pain. The patient has overall very poor dental hygiene. EARS: External auditory canals clear, tympanic membranes pearly gutierrez without erythema or effusion bilaterally. ED COURSE: The patient was evaluated as above. He has multiple teeth which are very carious. There is no evidence of abscess at this time. The patient has an appointment in approximately 36 hours for extraction of his teeth. I did question the patient, as he has been here for dental pain before and has told providers that he has appointments to have the teeth extracted in February and he said breath last year. The patient does report that he had those appointments, but that they were not able to perform the surgery because his blood pressure was not controlled. The patient was given a home pack of OxyIR but was informed that he will no longer be able to receive narcotic prescriptions from the ER for this issue. He verbalized understanding of my assessment and treatment plan and was discharged home in good condition. DIAGNOSIS: Multiple dental caries Problem List Medical Problems: (1) Benign hypertension Status: Chronic (2) Dental caries Status: Chronic (3) Inguinal hernia, right Status: Chronic Current/Historical Medications Scheduled Acetaminophen (Tylenol), 2-4 TAB PO PRN Lisinopril/Hctz (Zestoretic 20MG/12.5MG), 2 TAB PO DAILY Allergies Coded Allergies: Cyclobenzaprine (Verified Adverse Reaction, Unknown, ANXIETY AND AGITATION , 07/18/16) Vital Signs Date Time Temp Pulse Resp B/P Pulse Ox O2 Delivery O2 Flow Rate FiO2 07/18/16 21:17 87 18 154/86 97 Room Air 07/18/16 20:04 36.7 85 18 156/97 98 Room Air Medications Administered Medications (Trade) Dose Ordered Sig/Zachariah Route Start Time Stop Time Status Last Admin Dose Admin Oxycodone HCl (Roxicodone Immediate Rel 5MG Home Pack) 1 homepack UD ONCE PO 07/18/16 20:45 07/18/16 20:46 DC 07/18/16 20:45 1 HOMEPACK Departure Information Impression Primary Impression: Dental caries Dispostion Home / Self-Care Condition GOOD Referrals Vargas Fleming M.D. (PCP) Patient Instructions My [facility] Additional Instructions Follow-up with your oral surgeon as scheduled. The emergency department is not able to treat your chronic dental pain.
[2016-07-18 21:17] VITALS: BP 154/86; PULSE 87; O2SAT 97
[2016-07-18] MEDS ORDERED: ACET-1256 PO (21:50)
== END 2016-07-18 21:19 | disposition home or self-care (01) ==
LOC: C.EDB 19:59 → C.EDD 21:19
DX: K02.9 Dental caries, unspecified (principal); I10 Essential (primary) hypertension; Z79.899 Other long term (current) drug therapy; Z88.8 Allergy status to other drugs, medicaments and biological substances

== ENCOUNTER 2016-10-17 20:10 | Emergency (ER) | payer OTHER ==
[~2016-10-17] VITALS: Ht 172.7 cm; Wt 83.1 kg
[~2016-10-17 20:10] MED LIST changes: +ACET-1256 PO; -OXYC1TAB3 PO
[2016-10-17 20:21] VITALS: TEMP 36.8; Ht 172.7 cm; Wt 83.1 kg
[2016-10-17] MEDS ORDERED: KETOROLAC TROMETHAMINE 60 MG/2 ML VIAL IM STA (21:30)
[2016-10-17] MEDS ORDERED: OXYCODONE IR HOME PACK PO ONE (21:30)
[2016-10-17] MEDS ORDERED: OXYC1TAB3 PO (21:43)
[2016-10-17 22:09] VITALS: BP 179/111; PULSE 64; O2SAT 96
--- NOTE | 2016-10-18 03:34 | EMERGENCY ROOM VISIT NOTE ---
ED Visit Note First contact with patient: 21:26 CHIEF COMPLAINT: Shoulder pain HISTORY OF PRESENT ILLNESS: This 46-year-old patient presents to the emergency department with family complaining of pain in the right shoulder after lifting heavy equipment at home a few days ago. There is limitation of motion of the arm because of the pain. The pain is moderate, constant and increases with motion of the hand and arm. The patient states the pain is throbbing and 8/10. The patient has taken Motrin without relief of the pain. No previous significant previous shoulder disease or injury. No numbness or tingling. no neck no back pain. No chest pain or shortness of breath. No abdominal pain or nausea/vomiting. No cough. REVIEW OF SYSTEMS: A 6 system review of systems was performed with positives and pertinent negatives in the HPI. ALLERGIES: Cyclobenzaprine MEDICATIONS: Reviewed PMH: Medical Problems: (1) Benign hypertension Status: Chronic (2) Dental caries Status: Chronic (3) Inguinal hernia, right Status: Chronic SOCIAL HISTORY: Drug use PHYSICAL EXAM: Vital Signs: Reviewed nurse's notes, vital signs hypertensive. GENERAL: White male, in no acute distress, but appears to be in pain, well- developed, well-nourished. MUSCULOSKELETAL: There is no deformity in the contour of the right shoulder and there are no marleny deformities noted. There is no sulcus sign. There is tenderness over the supraspinatus. The patient's range of motion is intact. Supraspinatus strength 4/5. There is no clavicle tenderness. No tenderness of the humerus, elbow, wrist, or hand. Senior Analytic Consultant strength 5/5. Radial pulse 2+. NECK: no tenderness to palpation over the cervical spine. HEART: Regular rate and rhythm without murmurs gallops or rubs. LUNGS: Clear to auscultation bilaterally without wheezes, rales or rhonchi. No accessory muscle use. No retractions. NEURO: The patient is alert and oriented to person, place, and time. Normal sensation to light and sharp touch. Capillary refill less than 2 seconds. EMERGENCY DEPARTMENT COURSE: I examined the patient. Patient was offered an x- ray and declined. He states he just like to have some pain medication and would like to follow-up with orthopedics outpatient if needed. He denies any direct fall and does not think there is a fracture. I was agreeable to this as this most likely is a strain of his supraspinatus. He was advised to follow-up orthopedics in a few days or here in the ER sooner for severe pain, numbness, tingling, worsening signs or symptoms or as needed. DIAGNOSIS: Shoulder strain, right shoulder DISCHARGE INSTRUCTIONS & TREATMENT: As below Patient was reviewed on the [place] drug monitoring website. He's had a few recent narcotic scripts. I attest that I have personally reviewed the patient's medications. Patient was advised to follow-up family care for his high blood pressure. Patient was found to have an elevated blood pressure and was referred to the family care DrTrina for recheck and for possible further treatment. Problem List Medical Problems: (1) Benign hypertension Status: Chronic (2) Dental caries Status: Chronic (3) Inguinal hernia, right Status: Chronic Current/Historical Medications Scheduled PRN Oxycodone Immediate Rel Tab (Roxicodone Ir), 1-2 TAB PO Q4H PRN for Severe Pain Allergies Coded Allergies: Cyclobenzaprine (Verified Adverse Reaction, Unknown, ANXIETY AND AGITATION , 07/18/16) Vital Signs Date Time Temp Pulse Resp B/P (MAP) Pulse Ox O2 Delivery O2 Flow Rate FiO2 10/17/16 22:09 64 20 179/111 96 10/17/16 20:21 36.8 80 18 169/108 98 Room Air Medications Administered Medications (Trade) Dose Ordered Sig/Zachariah Route Start Time Stop Time Status Last Admin Dose Admin Ketorolac Tromethamine (Toradol Inj) 60 mg NOW STAT IM 10/17/16 21:30 10/17/16 21:31 DC 10/17/16 21:41 60 MG Oxycodone HCl (Roxicodone Immediate Rel 5MG Home Pack) 1 homepack UD ONCE PO 10/17/16 21:30 10/17/16 21:31 DC 10/17/16 21:42 1 HOMEPACK Departure Information Impression Primary Impression: Right shoulder strain Dispostion Home / Self-Care Condition GOOD Prescriptions Oxycodone Immediate Rel Tab (ROXICODONE IR) 5 Mg Tab 1-2 TAB PO Q4H Y for Severe Pain, #10 TAB Prov: Danitza Claire ., LOWELL 10/17/16 Referrals Haroldo Crocker MD Forms HOME CARE DOCUMENTATION FORM, IMPORTANT VISIT INFORMATION Patient Instructions My [facility], ED Sprain Shoulder Additional Instructions DO NOT drive, drink alcohol, operate machinery, or perform dangerous activities today. You were given medications in the ER that can affect your ability to safely function or operate a vehicle. Your blood pressure is high today. Follow-up with family care for this. Oxycodone (OxyIR) 5mg: Take 1-2 pills every four hours for breakthrough pain. Avoid alcohol, operating machinery or dangerous equipment, working on ladders or roofs, DRIVING, or situations where being under the influence may be dangerous. It is recommended to use an lcfs-nwn-srxllge stool softener such as Colace, 100mg twice daily while taking this medication to avoid constipation. Ibuprofen(Motrin, Advil) may be used for fever or pain. Use 600mg every six hours as needed. Take with food. Avoid using more than 2400mg in a 24 hour period. Do not use 2400mg per day for more than three consecutive days without physician direction. Prolonged inappropriate use can lead to stomach upset or ulcers. This medication can be taken if you need to drive, work, or perform activities which may be dangerous when taking narcotic pain medication. (AND/OR) Acetaminophen(Tylenol) may be used for fever or pain. Use 1000mg every six hours as needed. Avoid using more than 3000mg in a 24 hour period. This medication can be taken if you need to drive, work, or perform activities which may be dangerous when taking narcotic pain medication. Ice compresses for 20 minutes at a time four times daily for 2-3 days. Rest and elevate your injury. Continue current medications. Return to the ER immediately for any numbness, tingling, severe pain, extreme swelling in the extremity or as needed. Call Orthopedics tomorrow to arrange follow up for your injury.
== END 2016-10-17 22:10 | disposition home or self-care (01) ==
LOC: C.EDB 20:11 → C.EDD 22:10
DX: S46.911A Strain of unspecified muscle, fascia and tendon at shoulder and upper arm level, right arm, initial encounter (principal); X58.XXXA Exposure to other specified factors, initial encounter; I10 Essential (primary) hypertension; Z88.8 Allergy status to other drugs, medicaments and biological substances

== ENCOUNTER 2017-01-18 14:21 | Emergency (ER) | payer OTHER ==
[~2017-01-18] VITALS: Ht 172.7 cm; Wt 90.1 kg
[~2017-01-18 14:21] MED LIST changes: -ACET-1256 PO; -LISI-787 PO; +OXYC1TAB3 PO
[2017-01-18 14:29] VITALS: BP 193/111; PULSE 78; TEMP 36.8; O2SAT 98; Ht 172.7 cm; Wt 90.1 kg
[2017-01-18] MEDS ORDERED: LISI-787 PO (15:03)
[2017-01-18] MEDS ORDERED: IBUP-1050 PO (15:03)
[2017-01-18] MEDS ORDERED: ACET-1256 PO (15:03)
--- NOTE | 2017-01-18 15:30 | DIAGNOSTIC IMAGING REPORT ---
LEFT THUMB 3 VIEWS CLINICAL HISTORY: Pain status post trauma COMPARISON: None DISCUSSION: There is a tiny age-indeterminate avulsion arising from the radial base of the distal phalanx. There is no dislocation. There are mild osteoarthritic changes. IMPRESSION: Tiny age-indeterminate avulsion arising from the base of the distal phalanx Electronically signed by: Derrick Pickett M.D. 01/18/2017 3:29 PM Dictated Date/Time: 01/18/2017 3:27 PM
--- NOTE | 2017-01-18 15:32 | DIAGNOSTIC IMAGING REPORT ---
R KNEE 3 VIEWS CLINICAL HISTORY: Right knee pain following injury. COMPARISON: Right knee radiograph January 18, 2015. FINDINGS: Alignment of the right knee is anatomic. No fracture or joint effusion is identified. Joint spaces are preserved. There is minimal osteophytosis of the right knee. IMPRESSION: No acute fracture or joint effusion of the right knee. Electronically signed by: Johnnie Zarate M.D. 01/18/2017 3:30 PM Dictated Date/Time: 01/18/2017 3:30 PM
[2017-01-18] MEDS ORDERED: ACETAMINOPHEN 500 MG TAB PO STA (15:48)
--- NOTE | 2017-01-18 15:52 | EMERGENCY ROOM VISIT NOTE ---
ED Visit Note First contact with patient: 14:33 CHIEF COMPLAINT: knee pain HISTORY OF PRESENT ILLNESS: This 46-year-old male patient presents to the emergency department ambulatory after sustaining an injury to the right knee and left thumb. The patient states that he was stepping down out of his tree stand last night and twisted the right knee. He states that he fell and hit the left thumb on the ground as well. If his overall discomfort a 7/10. He has been able to walk on the knee but states it has been slightly more painful to bear weight. He has been using ice without relief. He denies previous injuries to the knee. He denies hitting his head or any other injuries. REVIEW OF SYSTEMS: A 6 system review of systems was completed with positives and pertinent negatives listed in the HPI. ALLERGIES: Cyclobenzaprine MEDICATIONS: Lisinopril/hydrochlorothiazide PMH: No significant past medical history. SOCIAL HISTORY: The patient lives locally with family. PHYSICAL EXAM: Vital Signs: Reviewed Nurse's notes, vital signs stable. GENERAL : This is a 46-year-old male, no acute distress, but appears in pain, well- developed, well-nourished. MENTAL STATUS: Alert, oriented to person place and time, and cooperative. MUSCULOSKELETAL: The right knee is not swollen. There is no ecchymosis. There is no joint effusion present. The patient is tender along the medial aspect of the knee. The patella does not subluxate. Range of motion is full. Strength of the quads and hamstrings is 5/5. Additionally, there is tenderness to palpation along the length of the left thumb. There is no significant edema, erythema or bruising. Distal pulses 2+. Sensation to pain and light touch is intact. Capillary refill less than 2 seconds. RADIOGRAPHIC FINDINGS: R KNEE 3 VIEWS FINDINGS: Alignment of the right knee is anatomic. No fracture or joint effusion is identified. Joint spaces are preserved. There is minimal osteophytosis of the right knee. IMPRESSION: No acute fracture or joint effusion of the right knee. LEFT THUMB 3 VIEWS DISCUSSION: There is a tiny age-indeterminate avulsion arising from the radial base of the distal phalanx. There is no dislocation. There are mild osteoarthritic changes. IMPRESSION: Tiny age-indeterminate avulsion arising from the base of the distal phalanx EMERGENCY DEPARTMENT COURSE: I examined the patient. X-rays of the right knee and left thumb were reviewed by myself and read by radiology and reveal no acute findings of the knee and age-indeterminate avulsion fracture of the left thumb. Patient was placed in an Vitaly wrap. Conservative measures were discussed with the patient. He was advised to follow-up with orthopedics for persistent symptoms. He verbalized understanding of my assessment and treatment plan. The patient was discharged home in good condition. Blood pressure screening: Patient was found to have an elevated blood pressure and was referred to their primary care provider for recheck and further treatment. Medication reconciliation: I attest that I have personally reviewed the patient 's current medication list. DIAGNOSIS: Right knee pain, left thumb pain Problem List Medical Problems: (1) Benign hypertension Status: Chronic (2) Dental caries Status: Chronic (3) Inguinal hernia, right Status: Chronic Current/Historical Medications Scheduled Lisinopril/Hctz (Zestoretic 20MG/12.5MG), 1 TAB PO BID Scheduled PRN Acetaminophen (Tylenol), 500 MG PO UD PRN for Pain Ibuprofen (Advil), 800 MG PO Q8 PRN for Pain Allergies Coded Allergies: Cyclobenzaprine (Verified Adverse Reaction, Unknown, ANXIETY AND AGITATION , 07/18/16) Vital Signs Date Time Temp Pulse Resp B/P (MAP) Pulse Ox O2 Delivery O2 Flow Rate FiO2 01/18/17 14:29 36.8 78 18 193/111 98 Room Air Medications Administered Medications (Trade) Dose Ordered Sig/Zachariah Route Start Time Stop Time Status Last Admin Dose Admin Acetaminophen (Tylenol Tab) 1,000 mg NOW STAT PO 01/18/17 15:48 01/18/17 15:50 DC 01/18/17 15:56 1,000 MG Departure Information Impression Primary Impression: Right knee pain Additional Impression: Pain of left thumb Dispostion Home / Self-Care Condition GOOD Referrals No Doctor, Assigned (PCP) Patient Instructions My [facility] Additional Instructions You have been treated in the Emergency Department for Knee Pain. For pain control, you can use the following [id number] medicines (if >12 yo): - Regular strength (325mg/tab) Tylenol (acetaminophen) 2 tabs every 4-6 hours as needed. Do not exceed 12 tablets in a 24 hour period. Avoid taking more than 4 grams (4000 mg) of Tylenol per day. This includes any other sources of acetaminophen you may take on a regular basis. - Regular strength (200 mg/tab) Advil (ibuprofen) 1-2 tabs every 4-6 hours as needed. Do not exceed a dose of 3200 mg per day. If this is a recent injury (<24 hrs), ice can be applied to the area of pain for the first 3 days to help decrease pain and inflammation. Ice massages can be performed by freezing water in a paper cup, peeling back the cup to expose the ice and then massaging over the affected area. Wear the Vitaly wrap as needed for pain/swelling. Follow-up with orthopedics if you have persistent or worsening pain in the knee. Return to the Emergency Department if your current symptoms worsen despite treatment course outlined above. Problem Qualifiers
== END 2017-01-18 16:03 | disposition home or self-care (01) ==
LOC: C.EDB 14:23 → C.EDD 16:03
DX: M25.561 Pain in right knee (principal); M79.645 Pain in left finger(s); W14.XXXA Fall from tree, initial encounter; Z79.899 Other long term (current) drug therapy; I10 Essential (primary) hypertension; K02.9 Dental caries, unspecified